=== PATIENT | female | born 1965 | race Caucasian/White ===

== ENCOUNTER 2017-11-03 23:18 | Emergency (ER) | payer BC, MEDICAID ==
[2017-11-04 00:27] LABS: ABSOLUTE BASOPHILS # (AUTO) 0.1 10^3/uL (0.0-0.2); ABSOLUTE LYMPHOCYTES (AUTO) 0.8 10^3/uL (0.5-4.7); ABSOLUTE MONOCYTES (AUTO) 0.4 10^3/uL (0.1-1.4); ABSOLUTE NEUT (AUTO) 9.2 10^3/uL (1.7-8.2); BASOPHILS % (AUTO) 0.5 % (0-2); EOSINOPHILS % (AUTO) 0.2 % (0-6); HEMATOCRIT 33.9 % (36.0-47.0); HEMOGLOBIN 10.9 g/dL (12.0-15.5); MEAN CORPUSCULAR HEMOGLOBIN 24.5 pg (27.0-33.4); MEAN CORPUSCULAR HGB CONC 32.1 g/dL (32.0-36.0); MEAN CORPUSCULAR VOLUME 76 fl (80-97); MONOCYTES % (AUTO) 3.5 % (3-13); PLATELET COUNT 286 10^3/uL (150-450); RED BLOOD COUNT 4.45 10^6/uL (3.72-5.28); SEGMENTED NEUTROPHILS % (AUTO) 87.8 % (42-78); TOTAL CELLS COUNTED % (AUTO) 100 %; WHITE BLOOD COUNT 10.5 10^3/uL (4.0-10.5)
[2017-11-04] MEDS ORDERED: MECLIZINE HCL 25 MG TABLET PO ONE (00:28)
[2017-11-04] MEDS ORDERED: NORMAL SALINE 1000 ML 1,000 ML IV ONE (00:28)
--- NOTE | 2017-11-04 00:28 | ER Document Report ---
ED GI/ - General Mode of Arrival: Ambulatory Information source: Patient TRAVEL OUTSIDE OF THE [place] IN LAST 30 DAYS: No <SUKH DOMINGO - Last Filed: 11/04/17 02:03> <HERLINDA AMADOR - Last Filed: 11/04/17 02:57> - General Chief Complaint: Nausea/Vomiting Stated Complaint: NAUSEA/VOMITING Time Seen by Provider: 11/04/17 00:21 Notes: 52-year-old female who presents to the emergency department today with complaints of a heart racing sensation, dizziness, nausea, and diarrhea. Patient states all the symptoms began essentially at once. Patient noticed that her dizziness was elicited with head movement. Patient states her last menstrual period was October 18. Patient states she was constipated until having diarrhea tonight. (SUKH DOMINGO) Past Medical History - General Information source: Patient - Social History Smoking Status: Former Smoker Cigarette use (# per day): No Chew tobacco use (# tins/day): No Frequency of alcohol use: Occasional Drug Abuse: None Lives with: Family Family History: Reviewed & Not Pertinent Patient has suicidal ideation: No Patient has homicidal ideation: No Endocrine Medical History: Reports: Hx Diabetes Mellitus Type 2 Renal/ Medical History: Denies: Hx Peritoneal Dialysis Past Surgical History: Reports: Hx Section, Hx Orthopedic Surgery - L ankle <SUKH DOMINGO - Last Filed: 11/04/17 02:03> Review of Systems - Review of Systems Constitutional: No symptoms reported EENT: No symptoms reported Cardiovascular: See HPI, Heart racing, Dizziness Respiratory: No symptoms reported Gastrointestinal: See HPI, Diarrhea, Nausea Genitourinary: No symptoms reported Female Genitourinary: No symptoms reported Musculoskeletal: No symptoms reported Skin: No symptoms reported Hematologic/Lymphatic: No symptoms reported Neurological/Psychological: No symptoms reported -: Yes All other systems reviewed and negative <SUKH DOMINGO - Last Filed: 11/04/17 02:03> Physical Exam <SUKH DOMINGO - Last Filed: 11/04/17 02:03> <HERLINDA AMADOR - Last Filed: 11/04/17 02:57> - Vital signs Vitals: Temp Pulse Resp BP Pulse Ox 97.6 F 109 H 18 154/92 H 100 11/03/17 23:29 11/03/17 23:29 11/03/17 23:29 11/03/17 23:29 11/03/17 23:29 - Notes Notes: Physical Exam: General: Alert, appears well. HEENT: Normocephalic. Atraumatic. PERRL. Extraocular movements intact. Oropharynx clear. Dizziness elicited with rapid head movement, lateral gaze nystagmus. Neck: Supple. Non-tender. Respiratory: No respiratory distress. Clear and equal breath sounds bilaterally. Cardiovascular: Tachycardic. Abdominal: Normal Inspection. Non-tender. No distension. Normal Bowel Sounds. Back: Non-tender. No deformity or step off. Extremities: Moves all four extremities. Upper extremities: Normal inspection. Normal ROM. Lower extremities: Normal inspection. No edema. Normal ROM. Neurological: Normal cognition. AAOx4. Normal speech. Psychological: Normal affect. Normal Mood. Skin: Warm. Dry. Normal color. (SUKH DOMINGO) Course - Laboratory Result Diagrams: 11/03/17 23:45 11/03/17 23:45 <SUKH DOMINGO - Last Filed: 11/04/17 02:03> - Laboratory Result Diagrams: 11/03/17 23:45 11/03/17 23:45 - EKG Interpretation by [facility] EKG shows normal: Sinus rhythm, [place], Intervals. abnormal: QRS Complexes - Nondiagnostic inferior Q's, ST-T Waves - Borderline anterolateral T abnormalities Rate: Tachycardia - 109 P Waves: LAE <HERLINDA AMADOR - Last Filed: 11/04/17 02:57> - Re-evaluation Re-evalutation: 11/04/17 02:55 Patient is feeling much better now. Had her sit up and look about rapidly if she did earlier, and the symptoms were not provoked at this time. She feels comfortable going home taking the same medication we gave her here. (HERLINDA AMADOR) - Vital Signs Vital signs: Temp Pulse Resp BP Pulse Ox 98.4 F 109 H 19 128/77 H 98 11/04/17 02:37 11/03/17 23:29 11/04/17 02:00 11/04/17 02:01 11/04/17 02:01 - Laboratory Laboratory results interpreted by or: 11/03/17 11/03/17 11/03/17 23:29 23:45 23:45 Hgb 10.9 L Hct 33.9 L MCV 76 L MCH 24.5 L RDW 17.0 H Seg Neutrophils % 87.8 H Lymphocytes % 8.0 L Absolute Neutrophils 9.2 H Sodium 136.8 L Carbon Dioxide 19 L Glucose 195 H POC Glucose 197 H AST 39 H Urine Glucose (UA) Urine Ketones 11/04/17 00:44 Hgb Hct MCV MCH RDW Seg Neutrophils % Lymphocytes % Absolute Neutrophils Sodium Carbon Dioxide Glucose POC Glucose AST Urine Glucose (UA) >=500 H Urine Ketones 80 H Discharge <SUKH DOMINGO - Last Filed: 11/04/17 02:03> <HERLINDA AMADOR - Last Filed: 11/04/17 02:57> - Discharge Clinical Impression: Vertigo Condition: Stable Disposition: HOME, SELF-CARE Additional Instructions: Vertigo You have experienced an episode of vertigo -- a whirling dizziness which may be accompanied by nausea and vomiting or staggering. Vertigo is often caused by an irritation of the inner ear, in which case it is called labyrinthitis. It can also be a symptom of a degenerating inner ear, nerve damage, or brain injury. Your physician has evaluated you to determine whether any further testing is necessary. Vertigo is often treated with dramamine or meclizine. These medications are helpful, but stronger medication may be needed if you are vomiting. Rest in bed. You should not drive or operate machinery until completely better. It may take one to three weeks for recovery. If there are new symptoms, such as decreased hearing or vision, severe headache, weakness or faintness, or confusion, call the physician. Take the medications as prescribed for the dizziness. Take fall precautions. Drink plenty of fluids get plenty of rest over the next few days. Follow-up with your doctor if not improving. RETURN TO THE EMERGENCY ROOM IF ANY NEW OR WORSENING SYMPTOMS. Prescriptions: Meclizine HCl [Antivert 25 mg Tablet] 25 mg PO TID PRN #30 tablet PRN Reason: Referrals: KATHIE CORONA MD [Primary Care Provider] - Follow up as needed Scribe Attestation: 11/04/17 00:29 I personally performed the services described in the documentation, reviewed and edited the documentation which was dictated to the scribe in my presence, and it accurately records my words and actions. (HERLINDA AMADOR) Scribe Documentation - Scribe Written by Se:: Se Gallegos, 11/04/2017 0210 acting as scribe for :: Moe <SUKH DOMINGO - Last Filed: 11/04/17 02:03>
[2017-11-04 01:42] LABS: ALANINE AMINOTRANSFERASE 23 U/L (9-52); ALBUMIN 4.4 g/dL (3.5-5.0); ALKALINE PHOSPHATASE 87 U/L (38-126); ANION GAP 15 (5-19); ASPARTATE AMINO TRANSFERASE 39 U/L (14-36); BILIRUBIN,DIRECT 0.3 mg/dL (0.0-0.4); BILIRUBIN,TOTAL 0.6 mg/dL (0.2-1.3); BLOOD UREA NITROGEN 15 mg/dL (7-20); CALCIUM 9.5 mg/dL (8.4-10.2); CARBON DIOXIDE 19 mmol/L (22-30); CHLORIDE 103 mmol/L (98-107); GLUCOSE 195 mg/dL (75-110); POTASSIUM 4.4 mmol/L (3.6-5.0); SODIUM 136.8 mmol/L (137-145); TOTAL PROTEIN 7.8 g/dL (6.3-8.2)
[2017-11-04 01:51] LABS: APPEARANCE,URINE CLEAR; BILIRUBIN,URINE NEGATIVE (NEGATIVE); COLOR,URINE STRAW; GLUCOSE, URINE >=500 mg/dL (NEGATIVE); KETONES,URINE 80 mg/dL (NEGATIVE); LEUKOCYTE ESTERASE,URINE NEGATIVE (NEGATIVE); NITRITE,URINE NEGATIVE (NEGATIVE); PROTEIN,URINE NEGATIVE (NEGATIVE); UROBILINOGEN,URINE NEGATIVE mg/dL (<2.0)
[2017-11-04 02:13] LABS: CREATINE KINASE 84 U/L (30-135)
--- NOTE | 2017-11-04 03:06 | EKG REPORT ---
SEVERITY:- ABNORMAL ECG - SINUS TACHYCARDIA PROBABLE LEFT ATRIAL ABNORMALITY BORDERLINE INFERIOR Q WAVES BORDERLINE T ABNORMALITIES, ANT-LAT LEADS : Confirmed by: Susy Gomez MD 04-Nov-2017 03:05:57
[2017-11-04 03:26] VITALS: BP 116/77
== END 2017-11-04 03:26 | disposition home or self-care (01) ==
LOC: ER 23:18
DX: R42 Dizziness and giddiness (principal); R00.0 Tachycardia, unspecified; R11.2 Nausea with vomiting, unspecified; R19.7 Diarrhea, unspecified; R09.89 Other specified symptoms and signs involving the circulatory and respiratory systems; E11.9 Type 2 diabetes mellitus without complications; Z87.891 Personal history of nicotine dependence
CPT/HCPCS: 93005; 99284; 96360; 36415; 82962; 82550; 84703; 85025; 80053; 81001; 84484; 93010; J7030